=== PATIENT | female | born 2000 | race Two or more races ===

== ENCOUNTER 2021-09-15 19:02 | Emergency (ER) | payer OTHER ==
[~2021-09-15] VITALS: Ht 152.4 cm; Wt 72.6 kg
[2021-09-15] MEDS ORDERED: DICLOFENAC SODI75 MG PO (20:44)
== END 2021-09-15 21:19 | disposition home or self-care (01) ==
LOC: ER 19:02 → EMR PED 19:02 → ER 19:45
DX: S93.491A Sprain of other ligament of right ankle, initial encounter (principal); X58.XXXA Exposure to other specified factors, initial encounter; Y93.89 Activity, other specified; Y92.89 Other specified places as the place of occurrence of the external cause; Y99.8 Other external cause status